=== PATIENT | female | born 1955 | race Caucasian/White ===

== ENCOUNTER 2018-05-26 08:55 | Emergency (ER) | payer MEDICAID ==
[~2018-05-26] VITALS: Ht 165.1 cm; Wt 95.3 kg
[2018-05-26 10:27] VITALS: BP 181/86
[2018-05-26] MEDS ORDERED: KETOROLAC TROMETH 60MG/2ML VIAL IM ONE (10:30)
== END 2018-05-26 11:22 | disposition home or self-care (01) ==
LOC: ER 08:55
DX: S20.211A Contusion of right front wall of thorax, initial encounter (principal); E11.22 Type 2 diabetes mellitus with diabetic chronic kidney disease; I12.0 Hypertensive chronic kidney disease with stage 5 chronic kidney disease or end stage renal disease; N18.6 End stage renal disease; Z88.1 Allergy status to other antibiotic agents; Z90.710 Acquired absence of both cervix and uterus; Z98.890 Other specified postprocedural states; W20.8XXA Other cause of strike by thrown, projected or falling object, initial encounter; Y93.89 Activity, other specified; Y92.89 Other specified places as the place of occurrence of the external cause; Y99.8 Other external cause status
CPT/HCPCS: 71046; 71101; 82962; 96372; 99283; J1885

== ENCOUNTER 2024-06-29 20:04 | Inpatient (IN) | payer OTHER, MEDICAID ==
[~2024-06-29] VITALS: Ht 165.1 cm; Wt 95.5 kg
[~2024-06-29 20:04] MED LIST: BUME1TAB3 PO; CARV25TA55 PO; GLIM4TAB42 PO; LEVO25TA6 PO; MUPI2OIN2 EX; OMEP1CAP70 PO; PATI1POW PO
[2024-06-29 20:42] LABS: Basophils # (auto) 0 10 ^3/uL (0-0.2); Basophils % (auto) 0.7 % (0.0-2.0); Eosinophils # (auto) 0 10 ^3/uL (0-0.8); Hemoglobin 9.8 g/dL (12.2-16.2); Lymphocytes # (auto) 0.8 10 ^3/uL (0.4-5.4); Mean Corpuscular Volume 82.8 fL (80.0-100.0); Nucleated Red Blood Cells % 0.1 %; White Blood Cell 5.8 10^3/uL (4.4-10.8)
[2024-06-29 20:44] LABS: Lymphocytes % (auto) 13.2 % (10.0-50.0); Mean Corpuscular Hemoglobin 26.2 pg (28.0-32.0); Mean Corpuscular Hgb Conc. 31.7 g/dL (32.0-36.0); Monocytes # (auto) 0.5 10 ^3/uL (0-1.3); Monocytes % (auto) 9.2 % (0.0-12.0); Neutrophils # (auto) 4.5 10 ^3/uL (1.6-8.6); Neutrophils % (auto) 76.9 % (37.0-80.0); Platelet Count (auto) 231 10^3/uL (140-450); Red Blood Cells 3.74 10^6/uL (4.0-5.20)
--- NOTE | 2024-06-29 20:47 | ED.PDOC ---
History of Present Illness HPI Comments 69 y/o F is BIBA for c/o shortness of breath, cough, and wheezing for the past 2x days, today. Per EMS report, patient was found on 91%RA and wheezing. She was given breathing Tx en route, with noted improvement by EMS staff. Upon arrival, patient comments on still being short of breath w/exertion, such as attempting to get up from the gurney using her own strength. Patient also informs on pending ESRD placement from her current CKDIII. She denies any chest pain, nausea, vomiting, or other associated symptoms or modifiers at this time. 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: No 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 History Respiratory: reports: cough, shortness of breath, wheezing All Other Systems: Reviewed and Negative (negative unless otherwise stated above or in HPI) Physical Exam General Appearance: Mild Distress, Normal HEENT: Normal ENT Inspection, Pharynx Normal, TMs Normal Neck: Full Range of Motion, Non-Tender, Normal, Normal Inspection Respiratory: Chest Non-Tender, No Accessory Muscle Use, Wheezing (scattered bilaterally ) Cardiovascular: No Edema, No JVD, No Murmur, No Gallop, Normal Peripheral Pulses, Regular Rate/Rhythm Breast Exam: Deferred Gastrointestinal: No Organomegaly, Non Tender, No Pulsatile Mass, Normal Bowel Sounds, Soft Genitalia: Deferred Pelvic: Deferred Rectal: Deferred Extremities: No calf tenderness, Normal capillary refill, Normal inspection, Normal range of motion, Non-tender, No pedal edema Musculoskeletal : Apperance: Normal Neurologic: Alert, outbound telemarketer II-XII nml as Tested, No Motor Deficits, Normal Affect, Normal Mood, No Sensory Deficits Cerebellar Function: Normal Reflexes: Normal Skin: Dry, Normal Color, Warm Lymphatic: No Adenopathy Was a procedure done? Was a procedure done?: No Differential Dx Considerations may include: CHF exacerbation, PNA, PE, URI, viral syndrome, MT X-Ray, Labs, Meds, VS Vital Signs Date Time Temp Pulse Resp B/P (MAP) Pulse Ox O2 Delivery O2 Flow Rate FiO2 06/29/24 22:48 156/92 06/29/24 22:39 103.1 06/29/24 20:55 110 18 100 Nasal Cannula* 2 28 06/29/24 20:55 103.1 110 18 159/91 (113) 100 103.1 06/29/24 20:19 101.8 106 18 180/102 (128) 91 06/29/24 20:10 108 Lab Test 06/29/24 22:49 06/29/24 21:33 06/29/24 20:24 Range/Units Influenza Type A Antigen Negative Negative Influenza Type B Antigen Negative Negative SARS-CoV-2 Antigen (Rapid) Negative NEGATIVE Troponin I High Sensitivity 81 *H 79 *H </=34 ng/L White Blood Count 5.8 4.4-10.8 10^3/uL Red Blood Count 3.74 L 4.0-5.20 10^6/uL Hemoglobin 9.8 L 12.2-16.2 g/dL Hematocrit 31.0 L 36.0-46.0 % Mean Corpuscular Volume 82.8 80.0-100.0 fL Mean Corpuscular Hemoglobin 26.2 L 28.0-32.0 pg Mean Corpuscular Hemoglobin Concent 31.7 L 32.0-36.0 g/dL Red Cell Distribution Width 17.0 H 11.8-14.3 % Platelet Count 231 140-450 10^3/uL Mean Platelet Volume 8.2 6.9-10.8 fL Neutrophils (%) (Auto) 76.9 37.0-80.0 % Lymphocytes (%) (Auto) 13.2 10.0-50.0 % Monocytes (%) (Auto) 9.2 0.0-12.0 % Eosinophils (%) (Auto) 0.0 0.0-7.0 % Basophils (%) (Auto) 0.7 0.0-2.0 % Neutrophils # (Auto) 4.5 1.6-8.6 10 ^3/uL Lymphocytes # (Auto) 0.8 0.4-5.4 10 ^3/uL Monocytes # (Auto) 0.5 0-1.3 10 ^3/uL Eosinophils # (Auto) 0 0-0.8 10 ^3/uL Basophils # (Auto) 0 0-0.2 10 ^3/uL Nucleated Red Blood Cells 0.1 % Sodium Level 133 L 136-145 mmol/L Potassium Level 4.6 3.5-5.1 mmol/L Chloride Level 98 98-107 mmol/L Carbon Dioxide Level 24 20-31 mmol/L Anion Gap 11 5-15 Blood Urea Nitrogen 45 H 9-23 mg/dL Creatinine 2.67 H 0.550-1.02 mg/dL Glomerular Filtration Rate Calc 19 >90 mL/min BUN/Creatinine Ratio 16.9 10.0-20.0 Serum Glucose 252 H 74-106 mg/dL Lactic Acid Level 1.6 0.4-2.0 mmol/L Calcium Level 9.4 8.7-10.4 mg/dL Magnesium Level 1.9 1.6-2.6 mg/dL Total Bilirubin 0.6 0.2-1.0 mg/dL Aspartate Amino Transferase (AST) 94 H 13-40 U/L Alanine Aminotransferase (ALT) 73 H 7-40 U/L Alkaline Phosphatase 183 H 46-116 U/L B-Type Natriuretic Peptide > 5000.00 0-100 pg/mL Total Protein 7.1 5.7-8.2 g/dL Albumin 4.1 3.2-4.8 g/dL Current Medications Medications (Trade) Dose Ordered Sig/Rey Route Start Time Stop Time Status Last Admin Albuterol (Ventolin Medneb) 5 mg ONCE ONCE [facility] 06/29/24 20:15 06/29/24 20:16 DC 06/29/24 20:51 Ipratropium [place] (Atrovent Medneb) 0.5 mg ONCE ONCE N 06/29/24 20:15 06/29/24 20:16 DC 06/29/24 20:51 Prednisone 40 mg ONCE ONCE PO 06/29/24 20:15 06/29/24 20:16 DC 06/29/24 21:10 Ceftriaxone Sodium 50 ml @ 100 mls/hr ONCE ONCE IV 06/29/24 22:00 06/29/24 22:29 DC 06/29/24 22:48 Azithromycin 250 ml @ 125 mls/hr ONCE ONCE IV 06/29/24 22:00 06/29/24 23:59 DC 06/30/24 00:00 Acetaminophen (Tylenol Tablet) 1,000 mg ONCE ONCE PO 06/29/24 22:00 06/29/24 22:02 DC 06/29/24 22:39 Aspirin 81 mg ONCE ONCE PO 06/29/24 22:00 06/29/24 22:02 DC 06/29/24 22:38 Furosemide (Lasix Injection) 40 mg ONCE ONCE IV 06/29/24 22:15 06/29/24 22:16 DC 06/29/24 22:48 Time of 1ST Reevaluation: 20:30 Reevaluation 1ST: Unchanged Time of 2ND Reevaluation: 22:07 Reevaluation 2ND: Unchanged Patient Education/Counseling: Diagnosis, Treatment Family Education/Counseling: Diagnosis, Treatment Departure 1 Departure Time of Disposition: 22:07 Impression: Primary Impression: Respiratory failure with hypoxia Additional Impressions: Pneumonia Congestive heart failure Chronic renal insufficiency, stage IV (severe) Disposition: ADMITTED INPATIENT Admit to: [facility] Condition: Guarded Critical Care Note Critical Care Time?: No Stability Stability form required: No Heart Score Heart Score: Heart Score Response (Comments) Value History Moderate Suspicious 1 EKG Normal 0 Age >65 2 Risk Factors >3 or Hx ASHD 2 Troponin 1-2 x's Normal limit 1 Total 6 I personally scribed for MARIYA HUNT MD ([email or web address]) on 06/29/24 at 20:47. Electronically submitted by Yeyo Leroy [email or web address]). MARIYA HUNT MD Jun 29, 2024 20:47
[2024-06-29] MEDS: IPRATROPIUM BROM 0.5 MG/2.5ML INH SOL HHN ONE (20:51)
[2024-06-29] MEDS: ALBUTEROL SULF 2.5 MG/0.5ML(0.5%) NEB SOLN HHN ONE (20:51)
[2024-06-29 20:55] VITALS: PULSE 110; RESP 18; O2SAT 100
[2024-06-29 20:59] LABS: Albumin 4.1 g/dL (3.2-4.8); Anion Gap 11 (5-15); BUN/Creatinine Ratio 16.9 (10.0-20.0); Bilirubin, Total 0.6 mg/dL (0.2-1.0); Calcium 9.4 mg/dL (8.7-10.4); Carbon Dioxide 24 mmol/L (20-31); Chloride 98 mmol/L (98-107); Magnesium 1.9 mg/dL (1.6-2.6); Potassium 4.6 mmol/L (3.5-5.1); Total Protein 7.1 g/dL (5.7-8.2)
[2024-06-29] MEDS: predniSONE 20 MG TAB PO ONE (21:10)
[2024-06-29 21:12] LABS: Alanine Aminotransferase 73 U/L (7-40); Alkaline Phosphatase 183 U/L (46-116); Aspartate Aminotransferase 94 U/L (13-40); Blood Urea Nitrogen 45 mg/dL (9-23); Glucose 252 mg/dL (74-106); Sodium 133 mmol/L (136-145)
--- NOTE | 2024-06-29 21:21 | DVH ---
CHEST RADIOGRAPH Indication: SOB Technique: Single frontal view of the chest was obtained Comparison: None FINDINGS: Lines and Tubes: None Lungs: Mildly prominent interstitial markings are noted bilaterally worse in the right lung field and right base. Pleura: No effusion. No pneumothorax. Cardiomediastinal contours: Cardiomegaly Bones: No acute osseous abnormality. IMPRESSION: 1. Cardiomegaly with pulmonary vascular congestion findings most likely represent congestive failure however pneumonia can not be entirely excluded. Correlate with clinical setting.
[2024-06-29] MEDS: ASPirin 81 mg TAB PO ONE (22:38)
[2024-06-29] MEDS: ACETAMINOPHEN 325 MG TAB PO ONE (22:39)
[2024-06-29] MEDS: cefTRIAXone 1GM/50ML D5W 50 ML IV ONE (22:48)
[2024-06-29] MEDS: FUROSEMIDE 40 MG/4 ML VIAL IV ONE (22:48)
[2024-06-29] MEDS ORDERED: DEXTROSE (50%) 50ML SYRG IV PRN (23:30)
[2024-06-29] MEDS ORDERED: MORPHINE SULFATE INJ 2 MG/ml SYRG IV PRN (23:30)
[2024-06-29] MEDS ORDERED: NITROGLYCERIN 0.4 MG SL TAB SL PRN (23:30)
[2024-06-29 23:34] LABS: COVID19 ANTIGEN SOFIA FIA NEGATIVE (NEGATIVE); Rapid Influenza A Negative (Negative); Rapid Influenza B Negative (Negative)
[2024-06-29 23:52] LABS: Base Excess -3.7 mmol/L (-2.0-3.0)
[2024-06-30] VITALS (14 sets, daily range): BP systolic 128–156; BP diastolic 83–92; PULSE 74–98; RESP 16–20; TEMP 98.2–99.6; O2SAT 93–100
[2024-06-30] MEDS: AZITHROMYCIN 500MG/ 250ML 250 ML IV ONE
--- NOTE | 2024-06-30 00:17 | DVHHP2 ---
Admitting Diagnosis: Acute respiratory failure, Sepsis, elevated troponin, CHF exacerbation History of Present Illness HPI 69 y.o. female with CHF, DM, CKD 3 was brought to the ED with shortness of breath, cough, fever for the past 3 days. Per EMS report, patient was wheezing and found to be hypoxic en route. She was given supplemental oxygen. On arrival to the ED patient had fever 103, was hypoxic and still wheezing. CXR showed pulmonary vascular congestion. Troponin was elevated. Past Medical History Cardiac: CAD, CHF, HTN, Hyperlipidemia Endocrine: NIDDM Review of Systems Constitutional: Fever Pulmonary/Respiratory: Dyspnea, Cough H&P Exam Vital Signs Vital Signs Date Time Temp Pulse Resp B/P (MAP) Pulse Ox O2 Delivery O2 Flow Rate FiO2 06/29/24 22:48 156/92 06/29/24 22:39 103.1 06/29/24 20:55 110 18 100 Nasal Cannula* 2 28 General Appeara: Obese Head Exam: Normal inspection Neck Exam: Normal inspection Eye Exam: bilateral eye PERRL, bilateral eye EOMI Pulmonary/Respiratory: Wheezing Cardiovascular/Chest: Tachycardia Abdominal Exam: Normal bowel sounds Neuro/Mental St: Alert, Oriented Labs/Xrays Labs Test 06/29/24 23:20 06/29/24 22:49 06/29/24 21:33 06/29/24 20:24 Range/Units Blood Gas Specimen Type Arterial Blood Gas Sample Site Right brachial Blood Gas Patient Temperature 37.0 Arterial Blood Date Drawn [id number] Arterial Blood pH 7.459 H 7.350-7.450 Arterial Blood Partial Pressure CO2 27.6 L 32.0-45.0 mmHg Arterial Blood Partial Pressure O2 152.1 H 83.0-108.0 mmHg Arterial Blood HCO3 19.1 L 21.0-28.0 mmol/L Arterial Blood Oxygen Saturation 99.0 H 94.0-98.0 % Arterial Blood Base Excess -3.7 L -2.0-3.0 mmol/L Arterial Blood Oxyhemoglobin 98.0 94.0-98.0 % Arterial Blood Carboxyhemoglobin 0.4 L 0.5-1.5 % Arterial Blood Methemoglobin 0.6 0.0-1.5 % Manuel Test N/a Blood Gas Total Hemoglobin 10.30 L 12.0-16.0 g/dL Blood Gas Liter Flow 2.00 Blood Gas Modality Nasal cannula FiO2 % 28.0 Influenza Type A Antigen Negative Negative Influenza Type B Antigen Negative Negative SARS-CoV-2 Antigen (Rapid) Negative NEGATIVE Troponin I High Sensitivity 81 *H </=34 ng/L White Blood Count 5.8 4.4-10.8 10^3/uL Red Blood Count 3.74 L 4.0-5.20 10^6/uL Hemoglobin 9.8 L 12.2-16.2 g/dL Hematocrit 31.0 L 36.0-46.0 % Mean Corpuscular Volume 82.8 80.0-100.0 fL Mean Corpuscular Hemoglobin 26.2 L 28.0-32.0 pg Mean Corpuscular Hemoglobin Concent 31.7 L 32.0-36.0 g/dL Red Cell Distribution Width 17.0 H 11.8-14.3 % Platelet Count 231 140-450 10^3/uL Mean Platelet Volume 8.2 6.9-10.8 fL Neutrophils (%) (Auto) 76.9 37.0-80.0 % Lymphocytes (%) (Auto) 13.2 10.0-50.0 % Monocytes (%) (Auto) 9.2 0.0-12.0 % Eosinophils (%) (Auto) 0.0 0.0-7.0 % Basophils (%) (Auto) 0.7 0.0-2.0 % Neutrophils # (Auto) 4.5 1.6-8.6 10 ^3/uL Lymphocytes # (Auto) 0.8 0.4-5.4 10 ^3/uL Monocytes # (Auto) 0.5 0-1.3 10 ^3/uL Eosinophils # (Auto) 0 0-0.8 10 ^3/uL Basophils # (Auto) 0 0-0.2 10 ^3/uL Nucleated Red Blood Cells 0.1 % Sodium Level 133 L 136-145 mmol/L Potassium Level 4.6 3.5-5.1 mmol/L Chloride Level 98 98-107 mmol/L Carbon Dioxide Level 24 20-31 mmol/L Anion Gap 11 5-15 Blood Urea Nitrogen 45 H 9-23 mg/dL Creatinine 2.67 H 0.550-1.02 mg/dL Glomerular Filtration Rate Calc 19 >90 mL/min BUN/Creatinine Ratio 16.9 10.0-20.0 Serum Glucose 252 H 74-106 mg/dL Lactic Acid Level 1.6 0.4-2.0 mmol/L Calcium Level 9.4 8.7-10.4 mg/dL Magnesium Level 1.9 1.6-2.6 mg/dL Total Bilirubin 0.6 0.2-1.0 mg/dL Aspartate Amino Transferase (AST) 94 H 13-40 U/L Alanine Aminotransferase (ALT) 73 H 7-40 U/L Alkaline Phosphatase 183 H 46-116 U/L B-Type Natriuretic Peptide > 5000.00 0-100 pg/mL Total Protein 7.1 5.7-8.2 g/dL Albumin 4.1 3.2-4.8 g/dL Assessment/Plan Problem List: (1) Respiratory failure with hypoxia (2) Sepsis (3) CHF exacerbation (4) Elevated troponin Plan Abx, Furosemide, RT, oxygen, steroids, ECHO, Cardiology consult Plan discussed with: Patient EVELINE BAUMANN MD Jun 30, 2024 00:17
[2024-06-30] MEDS: IPRATROPIUM BROM 0.5 MG/2.5ML INH SOL NEB SCH (01:05)
[2024-06-30] MEDS: ALBUTEROL SULF 2.5 MG/0.5ML(0.5%) NEB SOLN NEB SCH (01:05)
[2024-06-30 01:45] LABS: INR 1.23 (0.9-1.15); Prothrombin Time 12.8 sec (9.3-11.8)
[2024-06-30 04:24] LABS: Eosinophils # (auto) 0 10 ^3/uL (0-0.8); Lymphocytes # (auto) 0.4 10 ^3/uL (0.4-5.4); Monocytes # (auto) 0.2 10 ^3/uL (0-1.3); Nucleated Red Blood Cells % 0.1 %
[2024-06-30 04:50] LABS: Basophils # (auto) 0 10 ^3/uL (0-0.2); Basophils % (auto) 0.6 % (0.0-2.0); Eosinophils % (auto) 0.1 % (0.0-7.0); Hematocrit 28.8 % (36.0-46.0); Hemoglobin 9.2 g/dL (12.2-16.2); Lymphocytes % (auto) 9.7 % (10.0-50.0); Mean Corpuscular Hemoglobin 26.7 pg (28.0-32.0); Mean Corpuscular Volume 83.3 fL (80.0-100.0); Monocytes % (auto) 4.1 % (0.0-12.0); Neutrophils # (auto) 3.4 10 ^3/uL (1.6-8.6); Neutrophils % (auto) 85.5 % (37.0-80.0); Platelet Count (auto) 185 10^3/uL (140-450); Red Blood Cells 3.46 10^6/uL (4.0-5.20); Red Cell Distribution Width 16.8 % (11.8-14.3); White Blood Cell 3.9 10^3/uL (4.4-10.8)
[2024-06-30 05:03] LABS: Albumin 3.7 g/dL (3.2-4.8); Anion Gap 12 (5-15); BUN/Creatinine Ratio 16.7 (10.0-20.0); Bilirubin, Total 0.4 mg/dL (0.2-1.0); Calcium 9.2 mg/dL (8.7-10.4); Carbon Dioxide 22 mmol/L (20-31); Chloride 99 mmol/L (98-107); Potassium 4.5 mmol/L (3.5-5.1); Total Protein 6.4 g/dL (5.7-8.2)
[2024-06-30 05:21] LABS: Alanine Aminotransferase 89 U/L (7-40); Alkaline Phosphatase 158 U/L (46-116); Aspartate Aminotransferase 117 U/L (13-40); Blood Urea Nitrogen 45 mg/dL (9-23); Glucose 251 mg/dL (74-106); Sodium 133 mmol/L (136-145)
[2024-06-30] MEDS: FUROSEMIDE 40 MG/4 ML VIAL IV SCH (06:06)
[2024-06-30] MEDS: ACCU-CHEK COMFORT CURVE STRIP VI SCH (06:26)
[2024-06-30] MEDS: InsuLIN REG 1unit/0.01ml Soln (100units/ml) SC SCH (06:37)
--- NOTE | 2024-06-30 07:04 | ECG ---
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
[2024-06-30] MEDS: DexAMETHasone SOD PHOS 10MG/1ML VIAL INJ IV SCH (11:50)
[2024-06-30] MEDS: cefTRIAXone 1GM/50ML D5W 50 ML IV SCH (11:50)
--- NOTE | 2024-06-30 15:34 | DVHINCON2 ---
Date of service: Jun 30, [address] Caruso Reason for Consultation Acute kidney injury History of Present Illness Patient is 69 y/o female with PMH of DM, HTN, CHF and CKD stage IV followed by Dr. Austin is admitted for cough, SOB and hypoxemia. On admission patient found to have elevated BUN and creatinine, nephrology is consulted for JOSUÉ Past Medical History PAST MEDICAL HISTORY: CHF, CKD, DM, HTN Past Surgical History Surgical History: Hysterectomy Allergies: Coded Allergies: Oxytetracycline (Verified Allergy, Severe, 05/26/18) Terazosin (Verified Allergy, Severe, 05/26/18) Home Meds Active Scripts Furosemide (Lasix) 80 Mg Tab, 1 TAB PO BID for 30 Days, #60 TAB 1 Refill Prov:ANNY CARUSO DO 07/01/24 Ipratropium-Albuterol (Ipratropium [place]/Albut) 1 Gabbie Gabbie, 1 GABBIE IN Q6HR for 3 Days, #90 ML 2 Refills Prov:ANNY CARUSO DO 07/01/24 Prednisone (Prednisone) 20 Mg Tab, 40 MG PO DAILY for 5 Days, #10 MG 0 Refills Prov:ANNY CARUSO DO 07/01/24 Levofloxacin Hemihydrate (LEVOFLOXACIN) 750 Mg Tab, 750 MG PO DAILY for 7 Days, #7 TAB 0 Refills Prov:ANNY CARUSO DO 07/01/24 Reported Medications Carvedilol (Carvedilol) 25 Mg Tab, 1 TAB PO BID for 90 Days, #180 06/30/24 Omeprazole (Omeprazole Dr) 20 Mg Cap, 1 CAP PO DAILY for 30 Days, #30 06/30/24 Levothyroxine Sodium (Levothyroxine Sodium) 25 Mcg Tab, 1 TAB PO DAILY for 100 Days, #100 06/30/24 Glimepiride (Glimepiride) 4 Mg Tab, 1 TAB PO DAILY for 100 Days, #100 06/30/24 Patiromer Sorbitex Calcium (Veltassa) 8.4 Gm Pow, 1 PKT PO DAILY for 30 Days, #30 06/30/24 Bumetanide (Bumetanide) 1 Mg Tab, 1.5 TAB PO DAILY for 28 Days, #43 06/30/24 Mupirocin (Pseudomonas Fluores (Mupirocin) 2 % Oin, 2 % EX UD for 40 Days, #60 06/30/24 Current Medications Family History: Atherosclerosis G8 FATHER Diabetes mellitus G8 MOTHER FH: heart attack G8 FATHER Hypertension G8 MOTHER Malignant neoplasm of endometrium G8 MOTHER Review of Systems All 12 item review of systems reviewed with the patient nonsignificant except what is mentioned in the history of present illness H&P Exam Vital Signs/I&O Vital Sign Date Time Temp Pulse Resp B/P (MAP) Pulse Ox O2 Delivery O2 Flow Rate FiO2 07/01/24 07:37 91 18 99 07/01/24 07:32 Nasal Cannula* 2 28 07/01/24 06:42 146/80 07/01/24 04:58 99.0 99.0 Intake and Output 06/30/24 07/01/24 19:00 07:00 Intake Total 300 ml 540 ml Balance 300 ml 540 ml Intake Oral 250 ml 540 ml IV Total 50 ml # Voids 3 4 Physical Exam Patient will be moderate respiratory distress , O2 nasal cannula lungs bibasilar crackles Cardiac exam regular rate and rhythm GI soft nontender normal Extremity no clubbing cyanosis or edema Neuro nonfocal Labs/Diagnostic Data Labs/Diagnostic Data Laboratory Tests Test 07/01/24 10:44 07/01/24 06:09 06/30/24 21:13 06/30/24 18:20 Range/Units White Blood Count 8.4 # 4.4-10.8 10^3/uL Red Blood Count 3.84 L 4.0-5.20 10^6/uL Hemoglobin 10.0 L 12.2-16.2 g/dL Hematocrit 31.6 L 36.0-46.0 % Mean Corpuscular Volume 82.2 80.0-100.0 fL Mean Corpuscular Hemoglobin 26.0 L 28.0-32.0 pg Mean Corpuscular Hemoglobin Concent 31.7 L 32.0-36.0 g/dL Red Cell Distribution Width 16.9 H 11.8-14.3 % Platelet Count 228 140-450 10^3/uL Mean Platelet Volume 8.6 6.9-10.8 fL Neutrophils (%) (Auto) 76.1 37.0-80.0 % Lymphocytes (%) (Auto) 13.1 10.0-50.0 % Monocytes (%) (Auto) 10.5 0.0-12.0 % Eosinophils (%) (Auto) 0.0 0.0-7.0 % Basophils (%) (Auto) 0.3 0.0-2.0 % Neutrophils # (Auto) 6.4 1.6-8.6 10 ^3/uL Lymphocytes # (Auto) 1.1 0.4-5.4 10 ^3/uL Monocytes # (Auto) 0.9 0-1.3 10 ^3/uL Eosinophils # (Auto) 0 0-0.8 10 ^3/uL Basophils # (Auto) 0 0-0.2 10 ^3/uL Nucleated Red Blood Cells 0.1 % Sodium Level 133 L 136-145 mmol/L Potassium Level 3.8 3.5-5.1 mmol/L Chloride Level 96 L 98-107 mmol/L Carbon Dioxide Level 28 20-31 mmol/L Anion Gap 9 5-15 Blood Urea Nitrogen 58 #H 9-23 mg/dL Creatinine 2.71 H 0.550-1.02 mg/dL Glomerular Filtration Rate Calc 18 >90 mL/min BUN/Creatinine Ratio 21.4 H 10.0-20.0 Serum Glucose 183 H 74-106 mg/dL Calcium Level 9.0 8.7-10.4 mg/dL Total Bilirubin 0.4 0.2-1.0 mg/dL Aspartate Amino Transferase (AST) 79 H 13-40 U/L Alanine Aminotransferase (ALT) 97 H 7-40 U/L Alkaline Phosphatase 144 H 46-116 U/L Total Protein 6.5 5.7-8.2 g/dL Albumin 3.7 3.2-4.8 g/dL POC Glucose 138 H 239 H 70-106 mg/dl Urine Color Colorless Yellow Urine Clarity Clear Clear Urine pH 5.5 5.0-9.0 Urine Specific [place] 1.009 1.001-1.035 Urine Protein 1+ H Negative Urine Ketones Negative Negative Urine Blood 1+ H Negative /uL Urine Nitrite Negative Negative Urine Bilirubin Negative Negative Urine Urobilinogen Normal Negative mg/dL Urine Leukocyte Esterase Negative Negative /uL Urine RBC 2 0 - 4 /hpf Urine WBC 3 0 - 5 /hpf Urine Squamous Epithelial Cells Few <5 /hpf Urine Bacteria Few H None Seen /hpf Urine Hyaline Casts Few 0 - 2 /lpf Urine Creatinine 29.49 L 30.0-125.0 mg/dL Urine Protein/Creatinine Ratio 3.84 Urine Sodium 109 40-220 mmol/L Urine Glucose 1+ H Normal mg/dL Urine Total Protein 113.2 H 1-14 mg/dL Test 06/30/24 18:04 06/30/24 17:29 06/30/24 11:57 06/30/24 06:22 Range/Units POC Glucose 359 H 204 H 264 H 70-106 mg/dl Vitamin D 25-Hydroxy 35.1 30.0-100 ng/mL Test 06/30/24 03:50 06/30/24 01:19 06/29/24 23:20 06/29/24 22:49 Range/Units White Blood Count 3.9 #L 4.4-10.8 10^3/uL Red Blood Count 3.46 L 4.0-5.20 10^6/uL Hemoglobin 9.2 L 12.2-16.2 g/dL Hematocrit 28.8 L 36.0-46.0 % Mean Corpuscular Volume 83.3 80.0-100.0 fL Mean Corpuscular Hemoglobin 26.7 L 28.0-32.0 pg Mean Corpuscular Hemoglobin Concent 32.0 32.0-36.0 g/dL Red Cell Distribution Width 16.8 H 11.8-14.3 % Platelet Count 185 140-450 10^3/uL Mean Platelet Volume 8.3 6.9-10.8 fL Neutrophils (%) (Auto) 85.5 H 37.0-80.0 % Lymphocytes (%) (Auto) 9.7 L 10.0-50.0 % Monocytes (%) (Auto) 4.1 0.0-12.0 % Eosinophils (%) (Auto) 0.1 0.0-7.0 % Basophils (%) (Auto) 0.6 0.0-2.0 % Neutrophils # (Auto) 3.4 1.6-8.6 10 ^3/uL Lymphocytes # (Auto) 0.4 0.4-5.4 10 ^3/uL Monocytes # (Auto) 0.2 0-1.3 10 ^3/uL Eosinophils # (Auto) 0 0-0.8 10 ^3/uL Basophils # (Auto) 0 0-0.2 10 ^3/uL Nucleated Red Blood Cells 0.1 % Sodium Level 133 L 136-145 mmol/L Potassium Level 4.5 3.5-5.1 mmol/L Chloride Level 99 98-107 mmol/L Carbon Dioxide Level 22 20-31 mmol/L Anion Gap 12 5-15 Blood Urea Nitrogen 45 H 9-23 mg/dL Creatinine 2.69 H 0.550-1.02 mg/dL Glomerular Filtration Rate Calc 19 >90 mL/min BUN/Creatinine Ratio 16.7 10.0-20.0 Serum Glucose 251 H 74-106 mg/dL Calcium Level 9.2 8.7-10.4 mg/dL Phosphorus Level 5.4 H 2.4-5.1 mg/dL Total Bilirubin 0.4 0.2-1.0 mg/dL Aspartate Amino Transferase (AST) 117 H 13-40 U/L Alanine Aminotransferase (ALT) 89 H 7-40 U/L Alkaline Phosphatase 158 H 46-116 U/L Total Protein 6.4 5.7-8.2 g/dL Albumin 3.7 3.2-4.8 g/dL Prothrombin Time 12.8 H 9.3-11.8 sec Prothrombin Time INR 1.23 H 0.9-1.15 Blood Gas Specimen Type Arterial Blood Gas Sample Site Right brachial Blood Gas Patient Temperature 37.0 Arterial Blood Date Drawn [id number] Arterial Blood pH 7.459 H 7.350-7.450 Arterial Blood Partial Pressure CO2 27.6 L 32.0-45.0 mmHg Arterial Blood Partial Pressure O2 152.1 H 83.0-108.0 mmHg Arterial Blood HCO3 19.1 L 21.0-28.0 mmol/L Arterial Blood Oxygen Saturation 99.0 H 94.0-98.0 % Arterial Blood Base Excess -3.7 L -2.0-3.0 mmol/L Arterial Blood Oxyhemoglobin 98.0 94.0-98.0 % Arterial Blood Carboxyhemoglobin 0.4 L 0.5-1.5 % Arterial Blood Methemoglobin 0.6 0.0-1.5 % Manuel Test N/a Blood Gas Total Hemoglobin 10.30 L 12.0-16.0 g/dL Blood Gas Liter Flow 2.00 Blood Gas Modality Nasal cannula FiO2 % 28.0 Influenza Type A Antigen Negative Negative Influenza Type B Antigen Negative Negative SARS-CoV-2 Antigen (Rapid) Negative NEGATIVE Test 06/29/24 21:33 06/29/24 20:24 Range/Units Troponin I High Sensitivity 81 *H 79 *H </=34 ng/L White Blood Count 5.8 4.4-10.8 10^3/uL Red Blood Count 3.74 L 4.0-5.20 10^6/uL Hemoglobin 9.8 L 12.2-16.2 g/dL Hematocrit 31.0 L 36.0-46.0 % Mean Corpuscular Volume 82.8 80.0-100.0 fL Mean Corpuscular Hemoglobin 26.2 L 28.0-32.0 pg Mean Corpuscular Hemoglobin Concent 31.7 L 32.0-36.0 g/dL Red Cell Distribution Width 17.0 H 11.8-14.3 % Platelet Count 231 140-450 10^3/uL Mean Platelet Volume 8.2 6.9-10.8 fL Neutrophils (%) (Auto) 76.9 37.0-80.0 % Lymphocytes (%) (Auto) 13.2 10.0-50.0 % Monocytes (%) (Auto) 9.2 0.0-12.0 % Eosinophils (%) (Auto) 0.0 0.0-7.0 % Basophils (%) (Auto) 0.7 0.0-2.0 % Neutrophils # (Auto) 4.5 1.6-8.6 10 ^3/uL Lymphocytes # (Auto) 0.8 0.4-5.4 10 ^3/uL Monocytes # (Auto) 0.5 0-1.3 10 ^3/uL Eosinophils # (Auto) 0 0-0.8 10 ^3/uL Basophils # (Auto) 0 0-0.2 10 ^3/uL Nucleated Red Blood Cells 0.1 % Sodium Level 133 L 136-145 mmol/L Potassium Level 4.6 3.5-5.1 mmol/L Chloride Level 98 98-107 mmol/L Carbon Dioxide Level 24 20-31 mmol/L Anion Gap 11 5-15 Blood Urea Nitrogen 45 H 9-23 mg/dL Creatinine 2.67 H 0.550-1.02 mg/dL Glomerular Filtration Rate Calc 19 >90 mL/min BUN/Creatinine Ratio 16.9 10.0-20.0 Serum Glucose 252 H 74-106 mg/dL Lactic Acid Level 1.6 0.4-2.0 mmol/L Calcium Level 9.4 8.7-10.4 mg/dL Magnesium Level 1.9 1.6-2.6 mg/dL Total Bilirubin 0.6 0.2-1.0 mg/dL Aspartate Amino Transferase (AST) 94 H 13-40 U/L Alanine Aminotransferase (ALT) 73 H 7-40 U/L Alkaline Phosphatase 183 H 46-116 U/L B-Type Natriuretic Peptide > 5000.00 0-100 pg/mL Total Protein 7.1 5.7-8.2 g/dL Albumin 4.1 3.2-4.8 g/dL Assessment JOSUÉ superimposed on CKD secondary to hemodynamic mediated Chronic kidney disease stage [address] Guerda dinh Acute hypoxic respiratory failure CHF exacerbation NSTEMI DM type II Hypertension Anemia of CKD REC: Closely monitor fluids and lytes Avoid nephrotoxins Strict I&O's I agree with diouresis Check UA, lytes and protein Check kidney US Insulin SS BP control Cardiology consult Will continue to follow Patient seen and examined by myself. I discussed my plan of care with the patient and the primary nurse at the bedside I would like to thank Dr. Caruso for the consult, will follow up Plan discussed with: Patient ADRIANNA SIMPSON MD Jun 30, 2024 15:34
--- NOTE | 2024-06-30 16:22 | DVH ---
Renal ultrasound HISTORY: danielle TECHNIQUE: 2 D ultrasound was performed with transaxial and longitudinal images. FINDINGS: Right kidney measures 10.1 cm and left kidney measures 9.4 cm. No renal masses, stones or h ydronephrosis. Normal cortical thickness. Urinary bladder contracted IMPRESSION: 1. Normal ultrasound of the kidneys and urinary bladder for age
[2024-06-30 21:39] LABS: Protein, Urine 113.2 mg/dL (1-14)
[2024-06-30 21:42] LABS: Creatinine, Urine 29.3 mg/dL (30.0-125.0); Creatinine, Urine 29.49 mg/dL (30.0-125.0); Urine Protein/Creatinine Ratio 3.84
[2024-06-30 21:49] LABS: Urine Bacteria FEW /hpf (None Seen); Urine Blood 1+ /uL (Negative); Urine Clarity Clear (Clear); Urine Color Colorless (Yellow); Urine Hyaline Cast FEW /lpf (0 - 2); Urine Protein, UAD 1+ (Negative); Urine Specific Gravity 1.009 (1.001-1.035); Urine Squamous Epithelial Cell FEW /hpf (<5); Urine Urobilinogen Normal (Negative); Urine WBC 3 /hpf (0 - 5); Urine pH 5.5 (5.0-9.0)
[2024-07-01] VITALS (14 sets, daily range): BP systolic 138–158; BP diastolic 76–102; PULSE 87–102; RESP 16–20; TEMP 98.1–99.7; O2SAT 91–99
--- NOTE | 2024-07-01 07:33 | DVHINCON2 ---
Date of service: Jul 01, 2024 History of Present Illness 69 yo F with hx of known CHF with systolic hf, ckd stage IV t o V awaiting AVF, htn, hl admitted for sob and fever. pt has elevated trop Past Medical History reviewed Family History: Atherosclerosis G8 FATHER Diabetes mellitus G8 MOTHER FH: heart attack G8 FATHER Hypertension G8 MOTHER Malignant neoplasm of endometrium G8 MOTHER Allergies: Coded Allergies: Oxytetracycline (Verified Allergy, Severe, 05/26/18) Terazosin (Verified Allergy, Severe, 05/26/18) Home Meds Reported Medications Carvedilol (Carvedilol) 25 Mg Tab, 1 TAB PO BID for 90 Days, #180 06/30/24 Omeprazole (Omeprazole Dr) 20 Mg Cap, 1 CAP PO DAILY for 30 Days, #30 06/30/24 Levothyroxine Sodium (Levothyroxine Sodium) 25 Mcg Tab, 1 TAB PO DAILY for 100 Days, #100 06/30/24 Glimepiride (Glimepiride) 4 Mg Tab, 1 TAB PO DAILY for 100 Days, #100 06/30/24 Patiromer Sorbitex Calcium (Veltassa) 8.4 Gm Pow, 1 PKT PO DAILY for 30 Days, #30 06/30/24 Bumetanide (Bumetanide) 1 Mg Tab, 1.5 TAB PO DAILY for 28 Days, #43 06/30/24 Mupirocin (Pseudomonas Fluores (Mupirocin) 2 % Oin, 2 % EX UD for 40 Days, #60 06/30/24 Current Medications Current Medications Medications (Trade) Dose Ordered Sig/Rey Route PRN Reason Start Time Stop Time Status Last Admin Ceftriaxone Sodium 50 ml @ 100 mls/hr DAILY IV 06/30/24 10:00 06/30/24 11:50 Dexamethasone Sodium Phosphate (Decadron Injection) 6 mg DAILY IV 06/30/24 10:00 06/30/24 11:50 Review of Systems 10 pt ros otherwise negative Vital Signs Vital Signs Date Time Temp Pulse Resp B/P (MAP) Pulse Ox O2 Delivery O2 Flow Rate FiO2 07/01/24 06:42 146/80 07/01/24 04:58 99.0 92 17 99 99.0 07/01/24 00:08 Nasal Cannula 2.0 07/01/24 00:08 28 Physical Exam nad s1 s2 rrr ctab soft nt/nd no edema Labs/Diagnostic Data Labs Test 07/01/24 06:09 06/30/24 18:20 06/30/24 17:29 06/30/24 03:50 Range/Units POC Glucose 138 H 70-106 mg/dl Urine Color Colorless Yellow Urine Clarity Clear Clear Urine pH 5.5 5.0-9.0 Urine Specific [place] 1.009 1.001-1.035 Urine Protein 1+ H Negative Urine Ketones Negative Negative Urine Blood 1+ H Negative /uL Urine Nitrite Negative Negative Urine Bilirubin Negative Negative Urine Urobilinogen Normal Negative mg/dL Urine Leukocyte Esterase Negative Negative /uL Urine RBC 2 0 - 4 /hpf Urine WBC 3 0 - 5 /hpf Urine Squamous Epithelial Cells Few <5 /hpf Urine Bacteria Few H None Seen /hpf Urine Hyaline Casts Few 0 - 2 /lpf Urine Creatinine 29.49 L 30.0-125.0 mg/dL Urine Protein/Creatinine Ratio 3.84 Urine Sodium 109 40-220 mmol/L Urine Glucose 1+ H Normal mg/dL Urine Total Protein 113.2 H 1-14 mg/dL Vitamin D 25-Hydroxy 35.1 30.0-100 ng/mL White Blood Count 3.9 #L 4.4-10.8 10^3/uL Red Blood Count 3.46 L 4.0-5.20 10^6/uL Hemoglobin 9.2 L 12.2-16.2 g/dL Hematocrit 28.8 L 36.0-46.0 % Mean Corpuscular Volume 83.3 80.0-100.0 fL Mean Corpuscular Hemoglobin 26.7 L 28.0-32.0 pg Mean Corpuscular Hemoglobin Concent 32.0 32.0-36.0 g/dL Red Cell Distribution Width 16.8 H 11.8-14.3 % Platelet Count 185 140-450 10^3/uL Mean Platelet Volume 8.3 6.9-10.8 fL Neutrophils (%) (Auto) 85.5 H 37.0-80.0 % Lymphocytes (%) (Auto) 9.7 L 10.0-50.0 % Monocytes (%) (Auto) 4.1 0.0-12.0 % Eosinophils (%) (Auto) 0.1 0.0-7.0 % Basophils (%) (Auto) 0.6 0.0-2.0 % Neutrophils # (Auto) 3.4 1.6-8.6 10 ^3/uL Lymphocytes # (Auto) 0.4 0.4-5.4 10 ^3/uL Monocytes # (Auto) 0.2 0-1.3 10 ^3/uL Eosinophils # (Auto) 0 0-0.8 10 ^3/uL Basophils # (Auto) 0 0-0.2 10 ^3/uL Nucleated Red Blood Cells 0.1 % Sodium Level 133 L 136-145 mmol/L Potassium Level 4.5 3.5-5.1 mmol/L Chloride Level 99 98-107 mmol/L Carbon Dioxide Level 22 20-31 mmol/L Anion Gap 12 5-15 Blood Urea Nitrogen 45 H 9-23 mg/dL Creatinine 2.69 H 0.550-1.02 mg/dL Glomerular Filtration Rate Calc 19 >90 mL/min BUN/Creatinine Ratio 16.7 10.0-20.0 Serum Glucose 251 H 74-106 mg/dL Calcium Level 9.2 8.7-10.4 mg/dL Phosphorus Level 5.4 H 2.4-5.1 mg/dL Total Bilirubin 0.4 0.2-1.0 mg/dL Aspartate Amino Transferase (AST) 117 H 13-40 U/L Alanine Aminotransferase (ALT) 89 H 7-40 U/L Alkaline Phosphatase 158 H 46-116 U/L Total Protein 6.4 5.7-8.2 g/dL Albumin 3.7 3.2-4.8 g/dL Test 06/30/24 01:19 06/29/24 23:20 06/29/24 22:49 06/29/24 21:33 Range/Units Prothrombin Time 12.8 H 9.3-11.8 sec Prothrombin Time INR 1.23 H 0.9-1.15 Blood Gas Specimen Type Arterial Blood Gas Sample Site Right brachial Blood Gas Patient Temperature 37.0 Arterial Blood Date Drawn Arterial Blood pH 7.459 H 7.350-7.450 Arterial Blood Partial Pressure CO2 27.6 L 32.0-45.0 mmHg Arterial Blood Partial Pressure O2 152.1 H 83.0-108.0 mmHg Arterial Blood HCO3 19.1 L 21.0-28.0 mmol/L Arterial Blood Oxygen Saturation 99.0 H 94.0-98.0 % Arterial Blood Base Excess -3.7 L -2.0-3.0 mmol/L Arterial Blood Oxyhemoglobin 98.0 94.0-98.0 % Arterial Blood Carboxyhemoglobin 0.4 L 0.5-1.5 % Arterial Blood Methemoglobin 0.6 0.0-1.5 % Manuel Test N/a Blood Gas Total Hemoglobin 10.30 L 12.0-16.0 g/dL Blood Gas Liter Flow 2.00 Blood Gas Modality Nasal cannula FiO2 % 28.0 Influenza Type A Antigen Negative Negative Influenza Type B Antigen Negative Negative SARS-CoV-2 Antigen (Rapid) Negative NEGATIVE Troponin I High Sensitivity 81 *H </=34 ng/L Test 06/29/24 20:24 Range/Units Lactic Acid Level 1.6 0.4-2.0 mmol/L Magnesium Level 1.9 1.6-2.6 mg/dL B-Type Natriuretic Peptide > 5000.00 0-100 pg/mL Microbiology Date/Time Source Procedure Growth Status 06/29/24 20:24 Blood Blood Culture - Preliminary NO GROWTH AFTER 24 HOURS OF INCUBATION. Resulted Assessment acute on chronic systolic and diasotlic hf ckd esrd obesity morbid htn hl Plan/Recommendation cont IV lasix lvef 30% on echo pt is pending outpt ICD eval with her cards after HD starts recommend BB for now would avoid judith,arb, arn for now given bad ckd and risk for hyperkalemia consider starting after HD trop is 2/2 to ckd dc home when medically stable Plan discussed with: Patient ANGELICA LYNN MD Jul 01, 2024 07:33
--- NOTE | 2024-07-01 08:13 | DVHSR ---
APPROVED REPORT EXAM: Two-dimensional and M-mode echocardiogram with Doppler and color Doppler. Blood Pressure: 128/76 mmHg INDICATION Elevated trop CHF ex RISK FACTORS Height: 5'8", Weight: 180 DIMENSIONS LVDd4.6 (3.8-5.7cm)LA (2D)3.9 (1.9-4.0cm)Aortic Root3.2 (2.0-3.7cm) LVDs3.9 (2.5-4.0cm)LA (MM) (1.9-4.0cm)Aortic Cusp Exc1.6 (1.5-2.0cm) EF (%) 20.0 (55-70%)Rt. Atrium4.6 (1.9-4.0cm)Asc. Aorta cm IVSd1.4 (0.7-1.1cm)RV (D)4.6 (1.8-2.4cm) PWd1.4 (0.7-1.1cm) Mitral Valve MitralMitral Stenosis E wave1.60m/sMV Mean GR.4mmHg A wave1.23m/sMV Peak GR.9mmHg E/A ratio1.32D MVAcm2 DECEL [id number] 1/2 [id number] IVRTmsDop MVA3.70cm2 Aortic Valve Aortic ValveAortic Stenosis V10.66m/Trav Mean GR.3mmHg V21.10m/Trav Peak GR.5mmHg LVOT Diameter2.0 (1.8-2.4cm)Doppler AVA1.88cm2 Pulmonic Valve V20.75m/s Tricuspid Valve TR Velocity3.27m/s [id number] Other Information Technically limited study due to body habitus. Conclusion dilated LV LVEf 25% by visual estimate RV dysfunction moderate to sevee tricuspid regurg moderate MAC, mild mitral stenosis
[2024-07-01 11:14] LABS: Basophils # (auto) 0 10 ^3/uL (0-0.2); Eosinophils # (auto) 0 10 ^3/uL (0-0.8); Monocytes # (auto) 0.9 10 ^3/uL (0-1.3)
[2024-07-01 11:17] LABS: Basophils % (auto) 0.3 % (0.0-2.0); Hematocrit 31.6 % (36.0-46.0); Lymphocytes # (auto) 1.1 10 ^3/uL (0.4-5.4); Lymphocytes % (auto) 13.1 % (10.0-50.0); Mean Corpuscular Hgb Conc. 31.7 g/dL (32.0-36.0); Mean Corpuscular Volume 82.2 fL (80.0-100.0); Monocytes % (auto) 10.5 % (0.0-12.0); Neutrophils # (auto) 6.4 10 ^3/uL (1.6-8.6); Neutrophils % (auto) 76.1 % (37.0-80.0); Nucleated Red Blood Cells % 0.1 %; Platelet Count (auto) 228 10^3/uL (140-450); Red Blood Cells 3.84 10^6/uL (4.0-5.20); Red Cell Distribution Width 16.9 % (11.8-14.3); White Blood Cell 8.4 10^3/uL (4.4-10.8)
[2024-07-01 11:40] LABS: Albumin 3.7 g/dL (3.2-4.8); Anion Gap 9 (5-15); BUN/Creatinine Ratio 21.4 (10.0-20.0); Bilirubin, Total 0.4 mg/dL (0.2-1.0); Carbon Dioxide 28 mmol/L (20-31); Potassium 3.8 mmol/L (3.5-5.1); Total Protein 6.5 g/dL (5.7-8.2)
[2024-07-01 11:44] LABS: Alanine Aminotransferase 97 U/L (7-40); Alkaline Phosphatase 144 U/L (46-116); Aspartate Aminotransferase 79 U/L (13-40); Blood Urea Nitrogen 58 mg/dL (9-23); Chloride 96 mmol/L (98-107); Glucose 183 mg/dL (74-106); Sodium 133 mmol/L (136-145)
[2024-07-01] MEDS ORDERED: LEVO750T40 PO ×3 (11:52→20:38)
[2024-07-01] MEDS ORDERED: PRED20TA2 PO ×2 (11:53→20:38)
[2024-07-01] MEDS ORDERED: IPRA0.00 IN ×2 (11:54→20:38)
[2024-07-01] MEDS ORDERED: FURO1TAB32 PO ×2 (11:54→20:38)
[2024-07-01] MEDS ORDERED: ALBUAER3 IN ×2 (12:00→20:38)
--- NOTE | 2024-07-01 12:04 | DVHPN2 ---
Progress Note Date Seen: Jul 01, 2024 Medical Necessity Reason Pt with a Central, PICC or Fol: No Subjective Review of Systems: RESPIRATORY:Abnormal Other Systems: Patient seen and examined by myself today in follow-up, O2 nasal cannula Objective vital signs Vital Sign Date Time Temp Pulse Resp B/P (MAP) Pulse Ox O2 Delivery O2 Flow Rate FiO2 07/01/24 07:37 91 18 99 07/01/24 07:32 Nasal Cannula* 2 28 07/01/24 06:42 146/80 07/01/24 04:58 99.0 99.0 Total Intake and Output 06/30/24 06/30/24 07/01/24 15:00 23:00 07:00 Intake Total 50 ml 390 ml 400 ml Balance 50 ml 390 ml 400 ml medications Current Medications Medications Dose Ordered Sig/Rey Route Start Time Stop Time Status Last Admin Dose Admin Nitroglycerin 0.4 mg Q5MINP PRN SL 06/29/24 23:30 Morphine Sulfate 2 mg Q30M PRN IV 06/29/24 23:30 Ceftriaxone Sodium 50 ml @ 100 mls/hr DAILY IV 06/30/24 10:00 07/01/24 10:12 Dexamethasone Sodium Phosphate 6 mg DAILY IV 06/30/24 10:00 07/01/24 10:12 Albuterol 2.5 mg Q6HR NEB 06/30/24 00:00 07/01/24 07:31 Ipratropium [place] 0.5 mg Q6HP NEB 06/30/24 00:00 07/01/24 07:31 Furosemide 40 mg Q8HR IV 06/30/24 06:00 07/01/24 06:42 Diagnostic Test (Pha) 1 strip ACHS 06/30/24 07:00 07/01/24 06:45 Insulin Human Regular ACHS SC 06/30/24 07:00 07/01/24 06:36 Dextrose 50 ml UD PRN IV 06/29/24 23:30 Examination: LUNGS:Normal, CVS:Normal, MSK:Normal laboratory and microbiology Laboratory Tests 07/01/24 10:44 Test 07/01/24 10:44 Range/Units Serum Glucose 183 H 74-106 mg/dL Microbiology Date/Time Source Procedure Growth Status 06/29/24 20:24 Blood Blood Culture - Preliminary NO GROWTH AFTER 24 HOURS OF INCUBATION. Resulted Problem List/Assessment/Plan Problem List/Assessment/Plan JOSUÉ superimposed on CKD secondary to hemodynamic mediated Chronic kidney disease stage [address] Austin Acute hypoxic respiratory failure Hyponatremia due to excess H2O CHF exacerbation NSTEMI DM type II Hypertension Anemia of CKD Nephrotic range proteinuria likely due to diabetic nephropathy REC: Kidney function stabilize Chronic Kidney Disease stage 4 No urine output charted Strict I&O's Furosemide 80 mg IV b.i.d. Fluid restrictions kidney US reported within normal limits Insulin SS BP control Cardiology consult Will continue to follow Plan discussed with: Patient My Orders My Orders Orders - ADRIANNA SIMPSON MD Procedure Category Date Status Time Kidney US 06/30/24 Resulted 15:36 Furosemide Injection PHA 07/01/24 Verified (Lasix Injection) 12:15 Sevelamer (Renagel) PHA 07/01/24 Verified 18:00 ADRIANNA SIMPSON MD Jul 01, 2024 12:04
[2024-07-01] MEDS: FUROSEMIDE 40 MG/4 ML VIAL IV SCH (12:15)
[2024-07-01] MEDS ORDERED: SEVE800T7 PO (13:33)
--- NOTE | 2024-07-01 13:35 | DVHDS2 ---
Discharge Summary Date of Admission Jun 29, 2024 at 23:19 Date of Discharge: Jul 01, 2024 Labs/Diagnostic Data: Laboratory Results Test 07/01/24 11:48 07/01/24 10:44 06/30/24 18:20 06/30/24 17:29 POC Glucose 202 mg/dl (70-106) White Blood Count 8.4 10^3/uL (4.4-10.8) Red Blood Count 3.84 10^6/uL (4.0-5.20) Hemoglobin 10.0 g/dL (12.2-16.2) Hematocrit 31.6 % (36.0-46.0) Mean Corpuscular Volume 82.2 fL (80.0-100.0) Mean Corpuscular Hemoglobin 26.0 pg (28.0-32.0) Mean Corpuscular Hemoglobin Concent 31.7 g/dL (32.0-36.0) Red Cell Distribution Width 16.9 % (11.8-14.3) Platelet Count 228 10^3/uL (140-450) Mean Platelet Volume 8.6 fL (6.9-10.8) Neutrophils (%) (Auto) 76.1 % (37.0-80.0) Lymphocytes (%) (Auto) 13.1 % (10.0-50.0) Monocytes (%) (Auto) 10.5 % (0.0-12.0) Eosinophils (%) (Auto) 0.0 % (0.0-7.0) Basophils (%) (Auto) 0.3 % (0.0-2.0) Neutrophils # (Auto) 6.4 10 ^3/uL (1.6-8.6) Lymphocytes # (Auto) 1.1 10 ^3/uL (0.4-5.4) Monocytes # (Auto) 0.9 10 ^3/uL (0-1.3) Eosinophils # (Auto) 0 10 ^3/uL (0-0.8) Basophils # (Auto) 0 10 ^3/uL (0-0.2) Nucleated Red Blood Cells 0.1 % Sodium Level 133 mmol/L (136-145) Potassium Level 3.8 mmol/L (3.5-5.1) Chloride Level 96 mmol/L (98-107) Carbon Dioxide Level 28 mmol/L (20-31) Anion Gap 9 (5-15) Blood Urea Nitrogen 58 mg/dL (9-23) Creatinine 2.71 mg/dL (0.550-1.02) Glomerular Filtration Rate Calc 18 mL/min (>90) BUN/Creatinine Ratio 21.4 (10.0-20.0) Serum Glucose 183 mg/dL (74-106) Calcium Level 9.0 mg/dL (8.7-10.4) Total Bilirubin 0.4 mg/dL (0.2-1.0) Aspartate Amino Transferase (AST) 79 U/L (13-40) Alanine Aminotransferase (ALT) 97 U/L (7-40) Alkaline Phosphatase 144 U/L (46-116) Total Protein 6.5 g/dL (5.7-8.2) Albumin 3.7 g/dL (3.2-4.8) Urine Color Colorless (Yellow) Urine Clarity Clear (Clear) Urine pH 5.5 (5.0-9.0) Urine Specific [place] 1.009 (1.001-1.035) Urine Protein 1+ (Negative) Urine Ketones Negative (Negative) Urine Blood 1+ /uL (Negative) Urine Nitrite Negative (Negative) Urine Bilirubin Negative (Negative) Urine Urobilinogen Normal mg/dL (Negative) Urine Leukocyte Esterase Negative /uL (Negative) Urine RBC 2 /hpf (0 - 4) Urine WBC 3 /hpf (0 - 5) Urine Squamous Epithelial Cells Few /hpf (<5) Urine Bacteria Few /hpf (None Seen) Urine Hyaline Casts Few /lpf (0 - 2) Urine Creatinine 29.49 mg/dL (30.0-125.0) Urine Protein/Creatinine Ratio 3.84 Urine Sodium 109 mmol/L (40-220) Urine Glucose 1+ mg/dL (Normal) Urine Total Protein 113.2 mg/dL (1-14) Vitamin D 25-Hydroxy 35.1 ng/mL (30.0-100) Test 06/30/24 03:50 06/30/24 01:19 06/29/24 23:20 06/29/24 22:49 Phosphorus Level 5.4 mg/dL (2.4-5.1) Prothrombin Time 12.8 sec (9.3-11.8) Prothrombin Time INR 1.23 (0.9-1.15) Blood Gas Specimen Type Arterial Blood Gas Sample Site Right brachial Blood Gas Patient Temperature 37.0 Arterial Blood Date Drawn [id number] Arterial Blood pH 7.459 (7.350-7.450) Arterial Blood Partial Pressure CO2 27.6 mmHg (32.0-45.0) Arterial Blood Partial Pressure O2 152.1 mmHg (83.0-108.0) Arterial Blood HCO3 19.1 mmol/L (21.0-28.0) Arterial Blood Oxygen Saturation 99.0 % (94.0-98.0) Arterial Blood Base Excess -3.7 mmol/L (-2.0-3.0) Arterial Blood Oxyhemoglobin 98.0 % (94.0-98.0) Arterial Blood Carboxyhemoglobin 0.4 % (0.5-1.5) Arterial Blood Methemoglobin 0.6 % (0.0-1.5) Manuel Test N/a Blood Gas Total Hemoglobin 10.30 g/dL (12.0-16.0) Blood Gas Liter Flow 2.00 Blood Gas Modality Nasal cannula FiO2 % 28.0 Influenza Type A Antigen Negative (Negative) Influenza Type B Antigen Negative (Negative) SARS-CoV-2 Antigen (Rapid) Negative (NEGATIVE) Test 06/29/24 21:33 06/29/24 20:24 Troponin I High Sensitivity 81 ng/L (</=34) Lactic Acid Level 1.6 mmol/L (0.4-2.0) Magnesium Level 1.9 mg/dL (1.6-2.6) B-Type Natriuretic Peptide > 5000.00 pg/mL (0-100) Other Laboratory Tests 07/01/24 10:44 Brief Hx & Hospital Course: Patient is a 69-year-old female with past medical history of CHF, CKD stage IV who presents with worsening shortness of breath. Patient presented requiring 4 L nasal cannula oxygen. TTE was done which showed LVEF of 25% with moderate to severe tricuspid regurgitation and moderate MAC, mild mitral stenosis. Patient was diuresed with Lasix IV. Renal function was noted to be 45/2.67 on admission with BUN/creatinine noted to be 58/2.71 on discharge. It was recommended the patient be discharged on Lasix 80 mg p.o. twice daily. Patient is to follow-up with nephrology for evaluation for hemodialysis initiation. Patient was discharged on home oxygen. She was also discharged on levofloxacin 750 mg every 48 hours, prednisone, DuoNeb treatment with home nebulizer. Patient was counseled on importance of salt restriction, fluid restriction. Patient is follow-up with cardiology and nephrology. Patient discharged in stable condition. Condition at Discharge: Good Final Diagnosis/Problems List CHF exacerbation Secondary Diagnosis: End Stage CHF-Reduced Systolic EF CKD Stage 4 Acute Respiratory Failure-Hypoxic Discharge Disposition: Home Discharge Instruct/Medications Diet: Cardiac 2g Na,low cholest Activity: No Restrictions, As Tolerated Follow Up/Referral: Follow up with cardiology. Follow up with nephrology for CKD 4. Medications: Lasix 80mg Twice a day. Take once a day after 1 week if swelling decreased and breathing improved. Discharge Statement: "Patient was advised to return to the ER or call 911 if any headaches, dizziness, shortness of breath, chest pain, abdominal pain, bleeding, fevers, or worsening of medical condition. Patient was counseled about treatment plan, medications, possible side effects, patientverbalized understanding. All questions were answered to the best of my ability. This discharge took greater then 30 minutes in planning, reviewing documentation, counseling the patient, and discussing with other team members." ASSESSMENT ASSESSMENT Assessment CHF exacerbation ANNY CARUSO DO Jul 01, 2024 13:35
[2024-07-01] MEDS: SEVELAMER 800 MG TAB PO SCH (18:48)
[2024-07-01] MEDS ORDERED: SEVE800T8 PO (20:38)
== END 2024-07-01 20:00 | disposition home or self-care (01) | DRG 871 ==
LOC: EDBD 20:04 → EDUNIT# 20:04 → ER 20:04 → TELE 23:19 → TELE-EAST 06-30 09:49 → UNDODISIN 07-01 20:00
PROVIDERS: ADMIT Internal Medicine; ATTEND Internal Medicine
DX: A41.50 Gram-negative sepsis, unspecified (principal); I21.A1 Myocardial infarction type 2; J96.01 Acute respiratory failure with hypoxia; J15.69 Pneumonia due to other Gram-negative bacteria; J15.9 Unspecified bacterial pneumonia; I50.23 Acute on chronic systolic (congestive) heart failure; N17.9 Acute kidney failure, unspecified; I13.0 Hypertensive heart and chronic kidney disease with heart failure and stage 1 through stage 4 chronic kidney disease, or unspecified chronic kidney disease; N18.4 Chronic kidney disease, stage 4 (severe); Z20.822 Contact with and (suspected) exposure to COVID-19; E66.01 Morbid (severe) obesity due to excess calories; D63.1 Anemia in chronic kidney disease; I25.10 Atherosclerotic heart disease of native coronary artery without angina pectoris; E78.5 Hyperlipidemia, unspecified; I08.1 Rheumatic disorders of both mitral and tricuspid valves; E11.22 Type 2 diabetes mellitus with diabetic chronic kidney disease; Z88.1 Allergy status to other antibiotic agents; Z88.8 Allergy status to other drugs, medicaments and biological substances; Z83.3 Family history of diabetes mellitus; Z82.49 Family history of ischemic heart disease and other diseases of the circulatory system; Z80.49 Family history of malignant neoplasm of other genital organs; Z99.81 Dependence on supplemental oxygen; Z79.84 Long term (current) use of oral hypoglycemic drugs; Z90.710 Acquired absence of both cervix and uterus; Z68.36 Body mass index [BMI] 36.0-36.9, adult
CPT/HCPCS: 36415; 36600; 71045; 76775; 80053; 81001; 82306; 82570; 82805; 82962; 83605; 83735; 83880; 84100; 84156; 84300; 84484; 85025; 85610; 87040; 87426; 87804; 93005; 93306; 94640; G0378; J1100; J1815